=== PATIENT | male | born 1985 | race Caucasian/White ===

== ENCOUNTER 2024-01-24 12:54 | Emergency (ER) | payer OTHER, SELFPAY ==
[2024-01-24 13:01] VITALS: BP 144/74; PULSE 83; RESP 18; TEMP 37; O2SAT 99; BMI 33.9
--- NOTE | 2024-01-24 13:30 | PC.NURSE ---
pt reports history of three bulging discs, was seen at urgent care on saturday and prescribed prednisone and cyclobenzeprine.
[2024-01-24] MEDS: KETOROLAC 30 MG/ML VIAL IM (13:44)
--- NOTE | 2024-01-24 14:26 | ED_ITS ---
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 Not associated with injury, not associated with problems with bowel or bladder function, no saddle anesthesia. Not having weakness in his legs pain is nonradiating. Says it started when he was adjusting his position in his car seat. He has previously had an MRI that showed lumbar disc disease, he is seeing a physical therapist and was seen at an outside urgent care 4 days ago started on a Medrol Dosepak, is taking diclofenac orally, is taking cyclobenzaprine. He has not a diabetic, not immunosuppressed and not an injection drug user. Related Data Previous Rx's Medication Instructions Recorded gabapentin 100 mg capsule 100 mg PO BEDTIME #30 caps 01/24/24 Allergies Allergy/AdvReac Type Severity Reaction Status Date / Time No Known Drug Allergies Allergy Verified 01/24/24 13:07 Patient History Social History Smoking Status: Never smoker Smoking Status: Never smoker alcohol intake frequency: 0-2 drinks per day Substance Use Type: does not use Exam Narrative Exam Narrative: Well-appearing male Initial Vital Signs Initial Vital Signs: Vital Signs Temperature 98.6 F 01/24/24 13:01 Pulse Rate 83 01/24/24 13:01 Respiratory Rate 18 01/24/24 13:01 Blood Pressure 144/74 H 01/24/24 13:01 Pulse Oximetry 99 01/24/24 13:01 Oxygen Delivery Method Room Air 01/24/24 13:01 HENPA Head: normal to inspection Back/Spine/Pelvis Other: No step-off or midline tenderness of the lumbar spine, no paraspinal spasm. Skin Other: Warm and dry Neuro Other: Patient walks with an antalgic gait. EHL ankle extensors quadriceps and hamstrings are intact. Intact distal light touch sensation. Knee jerks are trace bilaterally Course Orders Ordered: Discontinued Medications Ketorolac Tromethamine (Ketorolac 30 Mg/Ml Vial) 30 mg IM NOW ONE Stop: 01/24/24 13:38 Last Admin: 01/24/24 13:44 Dose: 30 mg Documented By: FRED Vital Signs Vital signs: Vital Signs - 8 hr 01/24/24 13:01 Temperature 98.6 F Pulse Rate 83 Respiratory Rate 18 Blood Pressure 144/74 H Pulse Oximetry 99 Oxygen Delivery Method Room Air MDM - Back Pain/Injury MDM Narrative Medical decision making narrative: Healthy 39-year-old male with what has been described as lumbar disc disease but a grossly normal neuro exam no traumatic injury no red flag features. He is already on a steroid taper, he is continuing with NSAIDs I added acetaminophen and gabapentin. Educated the patient regarding expected course of this and the need for follow up with primary care. The patient is active duty therefore assumed to have good primary care. Indications for return to emergency department were reviewed Discharge Plan Departure Patient Disposition: Home Clinical Impression: Acute back pain Qualifiers: Back pain location: low back pain Back pain laterality: midline Sciatica presence: without sciatica Qualified Code(s): M54.50 - Low back pain, unspecified Instructions: DI for Low Back Pain Activity Restrictions/Additional Instructions: History and examination today are reassuring. I do not think that there is a dangerous cause for your back pain, and I expect it is going to get better with time. Continue the Medrol Dosepak as previously prescribed, continue the diclofenac as previously prescribed, continue with the cyclobenzaprine as needed. You can add acetaminophen, 650-1000 mg up to 4 times a day and I have also sent a prescription for gabapentin, as we discussed, you can start this at bedtime and taken up to 3 times a day if having pain. Dosage may need to be increased by your primary care provider. Activity as tolerated, try to avoid bending over sitting for a long time or lifting. Follow up soon with your primary care provider. Return to the emergency department for fevers, new weakness in your legs problems with urination or numbness in the perineal area. Prescriptions: New gabapentin 100 mg capsule 100 mg PO BEDTIME Qty: 30 0RF Rx Instructions: Start with 1 tablet at bedtime, you can increase this to 1 tablet 3 times a day if moderate to severe pain persists. Be aware that this can cause drowsiness. Your dosage might need to be increased by your primary care doctor subsequently. Stand Alone Forms: Patient Portal/API
[2024-01-24 14:35] VITALS: BP 155/91; PULSE 71; O2SAT 99
== END 2024-01-24 14:34 | disposition home or self-care (01) ==
PROVIDERS: Emergency Provider Emergency Medicine
DX: M54.50 Low back pain, unspecified (principal)
CPT/HCPCS: 96372; 99283; J1885